=== PATIENT | female | born 1995 | race Caucasian/White ===

== ENCOUNTER 2018-12-18 08:30 | Outpatient (RCR) | payer MEDICAID ==
[2018-12-13 16:48] VITALS: BP 139/72; PULSE 101; TEMP 98.8
[2018-12-16 10:16] VITALS: BP 127/66; PULSE 96; TEMP 98.7
[~2018-12-18] VITALS: Ht 154.9 cm; Wt 60.0 kg
[~2018-12-18 08:30] MED LIST: NATURAL IRON65 MG PO; PRENATAL MVI PO
[2018-12-18 08:36] VITALS: BP 118/79; PULSE 104; TEMP 98.4
--- NOTE | 2018-12-18 10:35 | NUR ---
Pt ace iron well. Pt discharged per ambulation.
== END 2018-12-18 12:03 | disposition home or self-care (01) ==
LOC: EUO 08:30
DX: O99.013 Anemia complicating pregnancy, third trimester (principal); Z3A.35 35 weeks gestation of pregnancy
CPT/HCPCS: J2916; J7050

== ENCOUNTER 2019-01-13 09:13 | Inpatient (IN) | payer MEDICAID ==
[~2019-01-13] VITALS: Ht 157.5 cm; Wt 62.3 kg
--- NOTE | 2019-01-13 20:15 | NUR ---
G1L0. 40-1. Ambulatory to [facility] 5 for scheduled induction with family. Clean gown on. EFM and TOCO explained and applied. Vital signs taken and consents completed. Pt states she has been having intermittent contractions but nothing consistent. Denies LOF or vaginal bleeding. Reports good movement. Plan of care explained to pt and family who verblaize undersanding. 2029: IV started and labs obtained via IV site. LR infusing without difficulties. 2049: FHR strip reactive. Cytotec explained and inserted vaginally per orders SVE 0/50/-3. Pt repositioned to LL. Plan of care explained to pt and family who verbalize understanding. 2124: updated on pts status. See physican notification. 2219: FHR elevated with basline of 165bpms and prolonged accelerations noted up to 180bpm. Pt on LL per orders and LR bolus infusing. updated on FHR. See physican notification. 2232: called back after reviewing FHR strip at home. Pt updated on change in plan of care. Questions answered. Pt denies needing anything at this time. Call light within reach.
[2019-01-13 20:50] LABS: BASO % 0.2 % (0.0-2.0); EOS # 0.1 (0.0-0.7); EOS % 0.6 % (0-4.0); GRAN # 7.3 (1.4-6.5); GRAN % 68.2 % (42.2-75.2); HEMATOCRIT 40.1 % (37.0-47.0); HEMOGLOBIN 12.8 g/dl (12.5-16.0); LYMPH # 2.1 (1.2-3.4); LYMPH % 19.8 % (20.0-51.0); MEAN CELL VOLUME 84 fl (80.0-100.0); MEAN CORPUSCULAR HEMOGLOBIN 27 pg (27.0-31.0); MEAN CORPUSCULAR HGB CONC 32 g/dl (33.0-37.0); MEAN PLATELET VOLUME 10.2 fl (7.4-10.4); MONO # 1.1 (0.1-0.6); MONO % 10.4 % (1.7-9.3); PLATELET COUNT 295 K/mm3 (130-400); RED BLOOD COUNT 4.78 M/mm3 (4.10-5.30)
[2019-01-13 21:00] VITALS: BP 124/84; PULSE 109; TEMP 99.1
[2019-01-13 21:30] VITALS: TEMP 98.9
[2019-01-13] MEDS ORDERED: IRON 27 MG PO (21:37)
[2019-01-13 22:30] VITALS: BP 107/59; PULSE 78
[2019-01-13 23:00] VITALS: BP 109/60; PULSE 81
[2019-01-13 23:03] LABS: TRICYCLIC ANTIDEPRESS URINE NEGATIVE
[2019-01-13 23:30] VITALS: BP 106/59; PULSE 71
[2019-01-14] VITALS (63 sets, daily range): BP systolic 102–138; BP diastolic 53–82; PULSE 64–114; TEMP 98.2–99.3
--- NOTE | 2019-01-14 06:15 | NUR ---
Report received, care assumed. Patient asleep in bed, awakes to name, plan of care reviewed. Pitocin started at 2mu per orders and protocol.
--- NOTE | 2019-01-14 08:45 | NUR ---
0866 - Dr. Oliver on unit, reviews FHR tracing. To patient room, discusses plan of care including AROM. SVE /3. 0873 - Dr. Oliver to room for AROM - moderate amount of clear fluid noted.
--- NOTE | 2019-01-14 09:20 | NUR ---
Patient more uncomfortable with contractions, request epidural. IVF bolus started. [employer] notified.
--- NOTE | 2019-01-14 09:53 | NUR ---
SHIRLEY Bryson to patient room to place epidural. Patient sits upright on the side of the bed for procedure. FHR difficult to monitor in this position and traces maternal HR as it coorelates with maternal HR on spO2 tracing. 0963 Single shot administed by SHIRLEY Bryson. See anesthesia record for details. 0981 Patient wedged to left side in bed.
--- NOTE | 2019-01-14 12:15 | NUR ---
Dr. Oliver at bedside. Reviews FHR tracing. SVE by Dr. Oliver .
--- NOTE | 2019-01-14 16:20 | NUR ---
Patient c/o feeling increased pain and pressure. SVE complete/+1.
--- NOTE | 2019-01-14 16:45 | NUR ---
Patient begins to push with contractions, family at bedside for support.
--- NOTE | 2019-01-14 17:30 | NUR ---
FHR 170 bpm with variable decelerations down to 90 bpm with each contraction/push. Patient pushing well. Dr. Oliver called and updated and will head to the hospital.
--- NOTE | 2019-01-14 18:03 | NUR ---
1745 Dr. Oliver to room for delivery. Patient continues to push with contractions. 180 Spontaneous vaginal delivery of viable male by Dr. Oliver. Cord clamped and cut and infant to the care of the nursery RN. 180 Spontaneous delivery of placenta by Dr. Oliver, pitocin infusing at 333ml/hr per orders and protocol. Fundus firm, lochia WNL. Repair of 3rd degree laceration by Dr. Oliver.
[2019-01-15 01:00] VITALS: BP 100/50; PULSE 82; TEMP 98
[2019-01-15 05:00] VITALS: BP 109/66; PULSE 100; TEMP 98.8
[2019-01-15 07:38] LABS: HEMOGLOBIN 10.6 g/dl (12.5-16.0)
[2019-01-15 08:35] VITALS: BP 90/60; PULSE 101; TEMP 97.6
--- NOTE | 2019-01-15 09:24 | NUR ---
Initial visit; Parents thanked [employer] for offering congratulations and God's blessings for the of their son. [employer] thanked them for choosing [facility].
[2019-01-15] MEDS ORDERED: IBU600 MG PO (10:53)
[2019-01-15 12:00] VITALS: BP 97/53; PULSE 90; TEMP 98.5
[2019-01-15 16:00] VITALS: BP 114/78; PULSE 104; TEMP 98.4
[2019-01-15 19:30] VITALS: BP 109/60; PULSE 107; TEMP 97.2
[2019-01-16 09:00] VITALS: BP 113/63; PULSE 102; TEMP 97.6
== END 2019-01-16 14:05 | disposition home or self-care (01) | DRG 768 ==
LOC: OB 09:13 → LDR 19:30 → OB 01-14 09:11
PROVIDERS: ADMIT Obstetrics & Gynecology
PROC: 3E0P7GC Introduction of Other Therapeutic Substance into Female Reproductive, Via Natural or Artificial Opening (ICD-10-PCS; 2019-01-13)
PROC: 10E0XZZ Delivery of Products of Conception, External Approach (ICD-10-PCS; principal; 2019-01-14)
PROC: 0DQR0ZZ Repair Anal Sphincter, Open Approach (ICD-10-PCS; 2019-01-14)
PROC: 10907ZC Drainage of Amniotic Fluid, Therapeutic from Products of Conception, Via Natural or Artificial Opening (ICD-10-PCS; 2019-01-14)
DX: O99.02 Anemia complicating childbirth (principal); Z37.0 Single live birth; O70.20 Third degree perineal laceration during delivery, unspecified; D50.9 Iron deficiency anemia, unspecified; O99.62 Diseases of the digestive system complicating childbirth; K21.9 Gastro-esophageal reflux disease without esophagitis; Z3A.40 40 weeks gestation of pregnancy
CPT/HCPCS: J2590; J2791; J2795; J7120